=== PATIENT | male | born 1990 | race Two or more races ===

== ENCOUNTER 2018-01-02 20:51 | Emergency (ER) | payer OTHER ==
[2018-01-02] MEDS: HYDROCODONE/APAP (5/325) TAB PO (22:07)
[2018-01-02] MEDS: KETOROLAC 30 MG INJ IM (22:07)
== END 2018-01-02 23:31 | disposition home or self-care (01) ==
LOC: FTE 20:51
DX: M54.5 Low back pain (principal)
CPT/HCPCS: 72100; 96372; 99284-25

== ENCOUNTER 2018-03-11 19:23 | Emergency (ER) | payer OTHER ==
[2018-03-11] MEDS: KETOROLAC 60 MG INJ IM (20:05)
== END 2018-03-11 20:32 | disposition home or self-care (01) ==
LOC: FTE 19:23
DX: M54.5 Low back pain (principal)
CPT/HCPCS: 96372; 99284-25